=== PATIENT | female | born 1980 | race American Indian/Alaskan Native ===

== ENCOUNTER 2016-12-25 10:08 | Outpatient (CLI) | payer OTHER ==
[2016-12-25] MEDS ORDERED: XYLOCAINE TOPICAL 4% TP ONE (10:30)
== END 2016-12-25 10:09 | disposition home or self-care (01) ==
LOC: WOUND 10:08
PROVIDERS: ATTEND Internal Medicine
DX: L97.812 Non-pressure chronic ulcer of other part of right lower leg with fat layer exposed (principal); E66.01 Morbid (severe) obesity due to excess calories; I10 Essential (primary) hypertension; Z85.828 Personal history of other malignant neoplasm of skin
CPT/HCPCS: 11042; 11045; G0463

== ENCOUNTER 2016-12-29 10:42 | Outpatient (CLI) | payer OTHER ==
--- NOTE | 2017-01-02 15:22 | Vascular Lab Report ---
LOWER EXTREMITY ARTERIAL DUPLEX: REASON FOR EXAM: Peripheral arterial disease. COMMENTS ON THE RIGHT: Triphasic waveforms are seen proximally. Triphasic waveforms are seen distally. No significant velocity gradients are identified. No focal significant plaque is identified. Findings are consistent with normal perfusion. Findings are consistent with the ability to heal distal wounds. COMMENTS ON THE LEFT: Triphasic waveforms are seen proximally. Triphasic waveforms are seen distally. No significant velocity gradients are identified. No focal significant plaque is identified. Findings are consistent with normal perfusion. Findings are consistent with the ability to heal distal wounds. IMPRESSION: RIGHT: Essentially normal arterial flow. LEFT:Essentially normal arterial flow.
--- NOTE | 2017-01-02 15:48 | Vascular Lab Report ---
LOWER EXTREMITY VENOUS DUPLEX: REASON FOR EXAM: Pain of the lower extremities. COMMENTS ON THE RIGHT: All veins visualized are freely compressible without evidence of internal echogenicity. Flow is spontaneous and phasic throughout. COMMENTS ON THE LEFT: All veins visualized are freely compressible without evidence of internal echogenicity. Flow is spontaneous and phasic throughout. IMPRESSION: No evidence of acute or chronic deep venous thrombosis in either lower extremity.
== END 2016-12-29 10:43 | disposition home or self-care (01) ==
LOC: VAS 10:42
PROVIDERS: ATTEND Internal Medicine
DX: M79.661 Pain in right lower leg (principal); M79.662 Pain in left lower leg
CPT/HCPCS: 93925; 93970

== ENCOUNTER 2017-01-03 14:20 | Outpatient (CLI) | payer OTHER ==
[2017-01-03] MEDS ORDERED: XYLOCAINE TOPICAL 4% TP ONE (14:29)
== END 2017-01-03 14:21 | disposition home or self-care (01) ==
LOC: WOUND 14:20
PROVIDERS: ATTEND Surgery
DX: L97.812 Non-pressure chronic ulcer of other part of right lower leg with fat layer exposed (principal); I10 Essential (primary) hypertension; E66.01 Morbid (severe) obesity due to excess calories; Z68.29 Body mass index [BMI] 29.0-29.9, adult; Z85.41 Personal history of malignant neoplasm of cervix uteri

== ENCOUNTER 2017-01-22 13:09 | Outpatient (CLI) | payer OTHER ==
[~2017-01-22 13:09] MED LIST: XYLOCAINE TOPICAL 4% TP ONE
[2017-01-22] MEDS ORDERED: XYLOCAINE TOPICAL 4% TP ONE ×2 (13:49→14:40)
== END 2017-01-22 13:10 | disposition home or self-care (01) ==
LOC: WOUND 13:09
PROVIDERS: ATTEND Internal Medicine
DX: L97.812 Non-pressure chronic ulcer of other part of right lower leg with fat layer exposed (principal); I10 Essential (primary) hypertension; E66.01 Morbid (severe) obesity due to excess calories; Z68.29 Body mass index [BMI] 29.0-29.9, adult; Z85.41 Personal history of malignant neoplasm of cervix uteri

== ENCOUNTER 2017-01-26 14:08 | Outpatient (CLI) | payer OTHER ==
[2017-01-26] MEDS ORDERED: AD OINTMENT TP ONE (14:22)
[2017-01-27] MEDS ORDERED: AD OINTMENT TP SCH (10:00)
== END 2017-01-26 14:09 | disposition home or self-care (01) ==
LOC: WOUND 14:08
PROVIDERS: ATTEND Podiatrist
DX: L97.812 Non-pressure chronic ulcer of other part of right lower leg with fat layer exposed (principal); Z85.41 Personal history of malignant neoplasm of cervix uteri
CPT/HCPCS: 99214; A6250; G0463

== ENCOUNTER 2017-01-29 14:17 | Outpatient (CLI) | payer OTHER ==
[2017-01-29] MEDS ORDERED: XYLOCAINE TOPICAL 4% TP ONE ×2 (14:44→14:48)
[2017-01-29] MEDS ORDERED: XYLOCAINE 1% 20 mL ONE (14:48)
== END 2017-01-29 14:18 | disposition home or self-care (01) ==
LOC: WOUND 14:17
PROVIDERS: ATTEND Internal Medicine
DX: L97.812 Non-pressure chronic ulcer of other part of right lower leg with fat layer exposed (principal); E66.01 Morbid (severe) obesity due to excess calories; I10 Essential (primary) hypertension; Z68.29 Body mass index [BMI] 29.0-29.9, adult; Z85.9 Personal history of malignant neoplasm, unspecified

== ENCOUNTER 2017-02-05 12:09 | Outpatient (CLI) | payer OTHER ==
[2017-02-05] MEDS ORDERED: XYLOCAINE TOPICAL 4% TP ONE (13:48)
[2017-02-05] MEDS ORDERED: XYLOCAINE TOPICAL 2% ONE (13:52)
[2017-02-05] MEDS ORDERED: XYLOCAINE TOPICAL 2% TP ONE (13:56)
== END 2017-02-05 12:10 | disposition home or self-care (01) ==
LOC: WOUND 12:09
PROVIDERS: ATTEND Internal Medicine
DX: L97.812 Non-pressure chronic ulcer of other part of right lower leg with fat layer exposed (principal); E66.01 Morbid (severe) obesity due to excess calories; I10 Essential (primary) hypertension; Z68.29 Body mass index [BMI] 29.0-29.9, adult; Z85.41 Personal history of malignant neoplasm of cervix uteri

== ENCOUNTER 2017-02-12 12:10 | Outpatient (CLI) | payer OTHER ==
[2017-02-12] MEDS ORDERED: XYLOCAINE TOPICAL 4% TP ONE ×2 (13:34→16:28)
[2017-02-12] MEDS ORDERED: AD OINTMENT TP ONE (14:24)
[2017-02-13] MEDS ORDERED: AD OINTMENT TP SCH (10:00)
== END 2017-02-12 12:11 | disposition home or self-care (01) ==
LOC: WOUND 12:10
PROVIDERS: ATTEND Surgery
DX: S81.801D Unspecified open wound, right lower leg, subsequent encounter (principal); E66.01 Morbid (severe) obesity due to excess calories; I10 Essential (primary) hypertension; L97.802 Non-pressure chronic ulcer of other part of unspecified lower leg with fat layer exposed; Z68.29 Body mass index [BMI] 29.0-29.9, adult; X58.XXXD Exposure to other specified factors, subsequent encounter; Z85.41 Personal history of malignant neoplasm of cervix uteri
CPT/HCPCS: A6250

== ENCOUNTER 2017-02-19 12:58 | Outpatient (CLI) | payer OTHER ==
[2017-02-19] MEDS ORDERED: XYLOCAINE TOPICAL 4% TP ONE (13:23)
[2017-02-19] MEDS ORDERED: AD OINTMENT TP SCH (15:00)
== END 2017-02-19 12:59 | disposition home or self-care (01) ==
LOC: WOUND 12:58
PROVIDERS: ATTEND Internal Medicine
DX: L97.812 Non-pressure chronic ulcer of other part of right lower leg with fat layer exposed (principal); E66.01 Morbid (severe) obesity due to excess calories; I10 Essential (primary) hypertension; Z68.29 Body mass index [BMI] 29.0-29.9, adult; Z85.41 Personal history of malignant neoplasm of cervix uteri
CPT/HCPCS: A6250

== ENCOUNTER 2017-02-26 13:37 | Outpatient (CLI) | payer OTHER ==
[2017-02-26] MEDS ORDERED: XYLOCAINE TOPICAL 4% TP ONE ×2 (13:57→14:05)
== END 2017-02-26 13:38 | disposition home or self-care (01) ==
LOC: WOUND 13:37
PROVIDERS: ATTEND Internal Medicine
DX: L97.812 Non-pressure chronic ulcer of other part of right lower leg with fat layer exposed (principal); I10 Essential (primary) hypertension; E66.01 Morbid (severe) obesity due to excess calories; Z68.29 Body mass index [BMI] 29.0-29.9, adult; Z85.41 Personal history of malignant neoplasm of cervix uteri

== ENCOUNTER 2017-03-06 13:39 | Outpatient (CLI) | payer OTHER | END 2017-03-06 13:40 | disposition home or self-care (01) | LOC: WOUND 13:39 | PROVIDERS: ATTEND Internal Medicine | DX: L97.811 Non-pressure chronic ulcer of other part of right lower leg limited to breakdown of skin (principal); E66.01 Morbid (severe) obesity due to excess calories; I10 Essential (primary) hypertension; L84 Corns and callosities; M79.671 Pain in right foot; Z68.29 Body mass index [BMI] 29.0-29.9, adult; Z85.41 Personal history of malignant neoplasm of cervix uteri | CPT/HCPCS: 11055 ==

== ENCOUNTER 2017-04-02 13:06 | Outpatient (CLI) | payer OTHER | END 2017-04-02 13:07 | disposition home or self-care (01) | LOC: WOUND 13:06 | PROVIDERS: ATTEND Internal Medicine | DX: L97.812 Non-pressure chronic ulcer of other part of right lower leg with fat layer exposed (principal); I10 Essential (primary) hypertension; E66.01 Morbid (severe) obesity due to excess calories; Z68.29 Body mass index [BMI] 29.0-29.9, adult; Z85.41 Personal history of malignant neoplasm of cervix uteri | CPT/HCPCS: 99213; G0463 ==